=== PATIENT | female | born 1955 | race Caucasian/White ===

== ENCOUNTER 2025-07-31 14:07 | Outpatient (AMB) | payer MEDICARE, OTHER, SELFPAY ==
--- NOTE | 2025-07-31 14:10 | A.OFFVIS_ITS ---
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 Allergies codeine (CODEINE) Allergy (Unknown, Unverified 07/31/25 14:10) HALLUCINATIONS iodine (IODINE) Allergy (Unknown, Unverified 07/31/25 14:10) HOT FLASHES/SWEATY Penicillins (PENICILLINS) Allergy (Unknown, Unverified 07/31/25 14:10) RASH/THROAT CLOSES Sulfa (Sulfonamide Antibiotics) (SULFA(SULFONAMIDE ANTIBIOTICS)) Allergy (Unknown, Unverified 07/31/25 14:10) RASH AND SWELLING Medication List - Last Reconciled 07/31/25 by Divina Live CNP apixaban (Eliquis) 5 mg PO BID atorvastatin 20 mg PO DAILY citalopram 10 mg PO DAILY citalopram mg PO lorazepam 0.5 mg PO Q8H PRN omeprazole 20 mg PO DAILY HPI Comments Details: 69-year-old LH woman with history of breast cancer at age 48 s/p radiation, VTE on Eliquis, and headaches since childhood with migraines that started during puberty that resolved with control therapy, presenting with recurrent headaches and associated symptoms. Ocular migraines, characterized by kaleidoscope vision, started about 10 years. Episodes would occur about once a month and lasted few minutes each time, most often in left eye. 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 Episodes would happen about twice a week and lasted about 10 minutes. There was no associated headache. On a few occasions, visual disturbances were associated with feeling of near-syncope. She went to ER where work up was apparently negative, no records available at this time. Visual disturbances have significantly improved since the end of soccer camp in 04/2025. She may have had one episode in 06/2025 without associated symptoms or headache. Headaches were happening few times a week, and could last 15-30 minutes, up to few hours. Certain smells could trigger headache. Most commonly, pain was pressure-type to left posterior head and neck area. In the past, she has taken Excedrin and coffee with some relief. She had some pain and stiffness in neck and left shoulder. She has been dealing with some left shoulder pain and recently had some imagining studies done. [facility] Family History (Updated 07/31/25 @ 14:30 by Divina Live CNP) Brother Multiple sclerosis Brother Ankle ankylosis Social History (Updated 07/31/25 @ 14:16 by Divina Live CNP) Alcohol intake: never Patient Tobacco Use Status: Never used Tobacco Review of Systems Const Denies chills, Denies daytime sleepiness, Denies difficulty sleeping, Reports fatigue, Denies fever(s), Denies frequent falls, Reports headache(s), Denies increased appetite, Denies poor appetite, Denies snoring, Denies weakness, Denies weight gain and Denies weight loss Eyes Denies blurry vision, Denies diplopia and Denies loss of vision ENT Denies vertigo, Denies dizziness, Denies dry mouth, Denies otalgia, Reports headache(s), Denies hearing loss, Denies epistaxis, Denies nasal congestion, Reports neck pain, Denies tinnitus, Denies sinus pain and Denies sore throat Card Denies chest pain at rest, Denies chest pain with activity, Denies syncope, Denies leg edema, Denies palpitations, Denies dyspnea and Denies dyspnea on exertion Resp Denies cough, Denies dyspnea, Denies dyspnea on exertion and Denies snoring GI Denies abdominal pain, Denies constipation, Denies heartburn, Denies diarrhea, Denies nausea and Denies vomiting Denies urinary frequency, Denies nipple discharge, Denies urinary incontinence and Denies urinary urgency Musc Denies abnormal gait, Reports back pain, Denies myalgias, Reports arthralgias, Reports neck pain, Denies numbness, Denies stiffness and Denies tingling Skin/Breast Denies breast mass, Denies nipple discharge and Denies rash Neuro Denies abnormal gait, Denies vertigo, Denies dizziness, Denies syncope, Denies frequent falls, Reports headache(s), Denies lack of coordination, Denies loss of vision, Reports memory loss, Denies numbness, Denies Other visual disturbances, Denies restless legs, Denies seizure-like activity, Denies tingling, Denies paresthesias, Denies tremor(s) and Denies weakness Psych Reports anxiety, Reports depression, Reports memory loss, Denies visual hallucinations and Denies hallucinations Endo Denies cold intolerance, Reports fatigue, Denies heat intolerance, Denies polydipsia, Denies polyuria and Denies palpitations Jonh/Lymph Denies easy bleeding and Denies easy bruising Physical Exam Const Other: General Appearance:? normal, in no acute distress. Head:? normocephalic, atraumatic. Eyes:? sclera non-icteric, conjunctiva clear. Ears:? auditory canal clear, tympanic membrane intact, clear. Nose:? no lesions. Oral Cavity:? gums normal, mucosa moist, no lesions. Throat:? clear. Neck/Thyroid:? no cervical lymphadenopathy. Skin:? no rashes, no significant birthmarks. Heart:? S1, S2 normal, no murmurs. Lungs:? clear anteriorly and posteriorly. Chest:? no gross rib deformity, clear to auscultation. Extremities:? no edema. Psych:? alert, oriented, cognitive function intact, cooperative with exam. Neuro Other: Mental Status:?Normal attention, orientation, memory and affect.? Cranial Nerves:?Pupils are equal, round and reactive to light. External occular muscles are intact. Visual pena are full. Face is symmetrical. Facial sensations are normal. Tongue is midline. Palate elevates symmetrically. Shoulder shrugging is normal. Hearing to bedside conversation is normal. Motor Examination:?Normal muscle tone, bulk and strength - LUE somewhat decreased due to pain. Deep tendon reflexes are 2+,?Plantars are flexor.? Sensory Exam:?....? Coordination:?No ataxia,?no titubation.? Gait Exam: Within normal limits. Cerebellar Signs:?[id number] and [id number] is normal.? Extrapyramidal System:?No tremor, rigidity with normal facial expressions.? Pronator Drift:?Not present.? Involuntary Movements:?No tremors seen.? Speech:?Normal.? Assessment & Plan Assessment & Plan (1) Ocular migraine: Code(s): G43.109 - Migraine with aura, not intractable, without status migrainosus Category: Medical Plan: She was educated on this condition and its treatment, including lifestyle modifications. Episodes were not frequent and medication was not indicated at this time. (2) Migraine with aura: Code(s): G43.109 - Migraine with aura, not intractable, without status migrainosus Category: Medical Qualifiers: Intractability: not intractable Status migrainosus presence: without status migrainosus Qualified Code(s): G43.109 - Migraine with aura, not intractable, without status migrainosus Plan: She was educated on this condition and its treatment, including preventative and abortive therapies, and lifestyle modifications. May continue Excedrin as needed for migraines, no more than 2-3x/weeks to avoid medication over-use headaches. Can consider prophylatic medication in the future if symptoms become more steve quent or severe. Reviewed labs ordered. (3) Tension headache: Code(s): G44.209 - Tension-type headache, unspecified, not intractable Category: Medical Plan: Start cyclobenzaprine 5mg 1/2 tablet - 1 tablet at bedtime as needed for muscle spasms/pain, use/side effects reviewed. Orders: Orders C Reactive Protein Today G43.109 - Migraine with aura, not intractable, without status migrainosus Erythrocyte Sedimentation Rate Today G43.109 - Migraine with aura, not intractable, without status migrainosus Medications: New cyclobenzaprine 5 mg PO BEDTIME PRN 30 tabs 1RF muscle spasm 30 days Coding Level of Care Code New Pt Level 5 (48806) Diagnoses Ocular migraine G43.109 Migraine with aura and without status migrainosus, not intractable G43.109 Intractability: not intractable Status migrainosus presence: without status migrainosus Tension headache G44.209
--- OUTSIDE RECORDS SUMMARY | 2025-07-31 16:41 | XMS_ITS ---
Author Name [facility] Organization Unknown Care Team Organization Name Specialty Phone Email Start Date End Da te [facility] ACO 06/14/2025 [facility] 12/31/2022 06/13/2024 [facility] Marilee [facility] 09/02/2022
--- OUTSIDE RECORDS SUMMARY | 2025-07-31 16:41 | XMS_ITS | Clinical Summary ---
Author Organization [address] [place] [address] [place] [phone] Phone Care Team Providers Care Financial Aid Counselor Name Role Phone Jerome Orellana Primary Care Provider [phone] Allergies Active Allergy Reactions Criticality Noted Date Comments Alendronate Sodium 03/29/2021 Muscle aches Codeine Hallucinations 09/24/2005 Iodine Nausea And Vomiting 09/24/2005 Penicillin G Procaine Hives 09/24/2005 Penicillins Hives 09/24/2005 Shellfish Derived 08/24/2016 Sulfa (Sulfonamide Antibiotics) Hives 09/24/2005 Medications cholecalcifero l (VITAMIN D-3) 25 mcg (1,000 unit) capsule Take by mouth. Activ e calcium citrate/vitami n D3 (CITRACAL + D MAXIMUM ORAL) Take 1 capsule by mouth. Active fluticasone propionate (FLONASE) 50 mcg/actuation nasal spray USE 1 SPRAY BY NASAL ROUTE DAILY. 16 mL 5 09/07/20 24 Active apixaban (Eliquis) 5 mg tablet Take 1 tablet (5 mg total) by mouth 2 (two) times a day. 180 tablet 3 11/28/19 25 Active LORazepam (ATIVAN) 0.5 mg tablet Take 1 tablet (0.5 mg total) by mouth every 8 (eight) hours if needed for anxiety. Max Daily Amount: 1.5 mg 30 tablet 11/28/19 25 Active citalopram (CeleXA) 20 mg tablet TAKE 1 TABLET BY MOUTH EVERY DAY IN THE MORNING. TAKE ALONG WITH CITALOPRAM 10 MG FOR A TOTAL OF 30 MG DAILY 90 tablet 1 02/07/20 25 Active omeprazole (PriLOSEC) [address] capsule TAKE 1 CAPSULE BY MOUTH EVERY DAY 90 capsule 3 05/08/20 25 Active atorvastatin (LIPITOR) 20 mg tablet Take 1 tablet (20 mg total) by mouth 1 (one) time each day. 90 tablet 3 05/29/20 25 Active citalopram (CeleXA) 10 mg tablet TAKE 1 TABLET BY MOUTH DAILY ALONG WITH CITALOPRAM 20 MG DAILY FOR A TOTAL OF 30 MG DAILY 90 tablet 1 07/07/20 25 Active citalopram (CeleXA) 10 mg tablet TAKE 1 TABLET BY MOUTH DAILY ALONG WITH CITALOPRAM 20 MG DAILY FOR A TOTAL OF 30 MG DAILY 90 tablet 1 12/29/19 25 025 Discontinued Active Problems Problem Noted Date Diagnosed Date Ascending aorta dilatation ([facility] V24) 023 History of 2019 novel coronavirus disease (COVID -19) 04/07/2022 Incisional hernia, without obstruction or gangre ne 11/07/2021 RLQ abdominal pain 07/26/2021 Overview (01/03/2024): Last Assessment & Plan: Explained that the best mode of visualization of the ovaries is pelvic US. We will complete this and if normal, she will follow up with GI and PCP as planned for RLQ pain. No obvious findings on exam. Mild episode of recurrent ma sedrick depressive disorder ([facility] V24) 04/09/2021 Osteoporosis 11/08/2019 Overview (01/03/2024): Joint pains with fosamax Mixed hyperlipidemia 04/14/2018 Arthritis pain 01/08/2017 DVT, lower extremity, recurrent ([facility] V24, CM S/HCC V28) 03/17/2014 Lumbar compression fracture ([facility] V24, [facility] V28) 06/21/2012 Lumbago 03/09/2012 Lumbosacral spondylosis without myelopathy 03/09 Spinal stenosis, lumbar 03/09/2012 Gall bladder stones 07/11/2009 Kidney stones 07/11/2009 Esophageal reflux 09/24/2005 Encounters Date Type Department Care Team Description 06/20/2025 Telephone Adult Medicine [address] [phone] Jerome Orellana PA 06/19/2025 1:28 PM EDT - 06/19/2025 11:59 PM EDT Hospital Encounter Radiology Department - [address] [phone] Ascending aorta dilatation (CMS/HCC V24); Gastroesophageal reflux disease without esophagitis; Mixed hyperlipidemia; Osteoporosis, unspecified osteoporosis type, unspecified pathological fracture presence; Spinal stenosis of lumbar region without neurogenic claudication; Productive cough; Arthritis pain; Ocular migraine Discharge Disposition: Home or Self Care 06/08/2025 12:30 PM EDT Ancillary Procedure [facility] [address] [place] [address] Ascending aorta dilatation (CMS/HCC V24); Gastroesophageal reflux disease without esophagitis; Mixed hyperlipidemia; Osteoporosis, unspecified osteoporosis type, unspecified pathological fracture presence; Spinal stenosis of lumbar region without neurogenic claudication 05/29/2025 1:40 PM EDT - 05/29/2025 11:59 PM EDT Hospital Encounter XRAY - [address] [phone] Ascending aorta dilatation (CMS/HCC V24); Gastroesophageal reflux disease without esophagitis; Mixed hyperlipidemia; Osteoporosis, unspecified osteoporosis type, unspecified pathological fracture presence; Spinal stenosis of lumbar region without neurogenic claudication; Productive cough; Arthritis pain; Ocular migraine Discharge Disposition: Home or Self Care 05/29/2025 12:45 PM EDT Office Visit Adult Medicine [address] [phone] Jerome Orellana PA Mixed hyperlipidemia (Primary Dx); Ascending aorta dilatation (CMS/HCC V24); Gastroesophageal reflux disease without esophagitis; Osteoporosis, unspecified osteoporosis type, unspecified pathological fracture presence; Spinal stenosis of lumbar region without neurogenic claudication; Productive cough; Arthritis pain; Ocular migraine from Last 3 Months Immunizations Immunization Administration Dates Next Due Influenza Quadravalent, 0.5m l (Fluad) 65yo and older 08/01/2021 Influenza Quadravalent, 0.5m l (Fluzone High-dose) 65yo and older 08/28/2022,08/28/2022,08/28/2019 Influenza Quadravalent, MDCK , 0.5ml, with preservative (Flucelvax) 6mo and older 08/01/2021,07/13/2017 Influenza trivalent, 0.5mL ( Fluad) 65yo and older 08/30/2024 Influenza trivalent, 0.5mL ( Fluzone High-dose) 65yo and older 07/16/2025,09/07/2023,08/28/2022,08/16,08/26/2019,07/12/2018 Influenza trivalent, with pr eservative (Fluzone; Afluria) 6mo and older 08/24/2016,07/28/2014,07/12/2009,09/05,07/26/2007 [employer] SARS-CoV-2 COVID-19, mRNA, LNP-S, preservative free 08/28/2022 Pneumococcal conjugate 13 va lent (Prevnar 13, PCV13) 2mo and older 09/14/2019 Pneumococcal polysaccharide 23 valent (Pneumovax 23) 2yo and older 09/28/2020 RSV, bivalent, protein subun it RSVpreF, 0.5mL, Preservative Free (Arexvy) 50yo and older 07/01/2024 TD, Adsorbed, Preservative Free 03/29/2021 Td Tetanus diptheria (Tdvax) 7yo and older 03/29/2021 Tdap Tetanus diptheria acell ular pertussis (Boostrix; Adacel) 7yo and older 12/30/2024,05/15/2008 Zoster Live 06/19/2015 Zoster recombinant (Shingrix ) 19yo and older 09/02/2021,09/24/2020 Surgical History Surgery Date Site/Laterality Comments BREAST LUMPECTOMY 10/26/2003 PROCEDURE: HISTORICAL BREAST LUMPECTOMY; COMMENT: Tamoxifen and radiation RX SALPINGOOPHORECTOMY PROCEDURE: MA LAPAROSCOPY W/RMVL ADNEXAL STRUCTURES; COMMENT: ROV cystectomy 1989 ESOPHAGOGASTRODUODENOSCOPY 08/09/2010 PROCEDURE: MA ESOPHAGOGASTRODUODENOSCOPY TRANSORAL DIAGNOSTIC; COMMENT: normal COLONOSCOPY 11/17/2005 PROCEDURE: HISTORICAL COLONOSCOPY; COMMENT: normal; repeat in ten years OTHER SURGICAL HISTORY 03/18/2016 PROCEDURE: COLON CA SCRN NOT HI RSK IND; COMMENT: tics and hemorrhoids; repeat in 10 yrs COLONOSCOPY 08/22/2021 PROCEDURE: HISTORICAL COLONOSCOPY; COMMENT: diverticulosis Medical History Medical History Date Comments Personal history of venous t hrombosis and embolism DX:Personal history of venou s thrombosis and embolism Allergic rhinitis, cause unspecified DX:Allergic rhinitis, cause unspecified Depressive disorder, not els ewhere classified 10/23/2006 DX:Depressive disorder, not elsewhere classified Unspecified asthma(493.90) DX:Un specified asthma(493.90) Anxiety state, unspecified DX:An xiety state, unspecified Malignant neoplasm of breast (female), unspecified site 09/24/2005 DX:Malignant neoplasm of br east (female), unspecified site; COMMENT: S/P LUMPECTOMY AND XRT 2004 Acquired lactose intolerance DX: Acquired lactose intolerance Esophageal reflux 09/24/2005 DX:Esophageal reflux Fall DX:Fall; COMMENT : 2023 Family History Medical History Relation Name Comments Arthritis Mother Diabetes Mother colostomy ( Cho litis) bipolar, age 72 Glaucoma Mother Cataracts Sister 1 Blindness Neg Hx Breast cancer Neg Hx Colon cancer Neg Hx Macular degeneration Neg Hx Ovarian cancer Neg Hx Strabismus Neg Hx Relation Name Status Comments Brother 1 Alive bipolar Brother 2 Alive ?mental illness Brother 3 Alive ETOH Brother 4 Alive ETOH, Father alcohol, cirrho sis Mother diabetes, bipol ar, glaucoma Sister 1 (Age 27) bipolar, s uicide Sister 2 Alive Social History Tobacco Use Types Packs/Day Years Used Date Smoking Tobacco: Never Smokeless Tobacco: Never Tobacco Cessation:Counseling Given: Not Answered Alcohol Use Standard Drinks/Week Comments No 0 (1 standard drink = 0.6 oz pur e alcohol) Housing Instability Answer Date Recorde d Are you worried that in the next 2 months you may not have stable housing? No 11/26/2024 Food Access & Nutrition Answer Date Rec orded Do you have access to a vari ety of food including fruits and vegetables? Yes 11/26/2024 Access to Healthcare Answer Date Record ed Within the last 3 months, ho w many times did you visit the emergency department for your medical care? 0 11/26/2024 Health Literacy Answer Date Recorded How often do you need to hav e someone help you when you read instructions, pamphlets, or other written material from your doctor or pharmacy? Never 11/26/2024 Caregiver: How often do you need to have someone help you when you read instructions, pamphlets, or other written material from your doctor or pharmacy? Not on file 11/26/2024 Financial Risk Answer Date Recorded How hard is it for you to pa y for the very basics like food, housing, medical care, and air conditioning / heating? Not very hard 11/26/2024 Transportation Answer Date Recorded Has the lack of transportati on kept you from meetings, work, or from getting things needed for daily living? No Has the lack of transportati on kept you from medical appointments or from getting medications? No 11/26/2024 Social Isolation Answer Date Recorded How often do you feel lonely or isolated from th ose around you? Never 11/26/2024 Food Risk Answer Date Recorded Within the past 12 months we worried whether our food would run out before we got money to buy more. Never true 11/26/2024 Within the past 12 months th e food we bought just didn't last and we didn't have money to get more. Never true 11/26/2024 Dependent Care Answer Date Recorded Do you need help finding or paying for care for your loved ones. For example, child life specialist or elderly care for an older adult? No 11/26/2024 Education Answer Date Recorded Do you think completing more education or training, like finishing a GED, going to college, or learning a trade, would be helpful for you? No 11/26/2024 Employment and Income Answer Date Recor ded During the last four weeks, have you been actively looking for work? No 11/26/2024 Living Situation Answer Date Recorded What is your living situation? Unrecognized valu e 11/26/2024 Comments No Sex and Gender Information Value Date Recorded Sex Assigned at Not on file Legal Sex Female 9:53 AM EST Gender Identity Not on file Sexual Orientation Not on file Obstetrics History Last Filed Vital Signs Vital Sign Reading Time Taken Comments Blood Pressure 120/82 06/08/2025 1:15 PM EDT Pulse 82 05/29/2025 12:58 PM EDT Temperature 36.8 C (98.2 F) 05/29/2025 12:58 PM EDT Respiratory Rate 14 12/21/2024 1:04 PM EST Oxygen Saturation - - Inhaled Oxygen Concentration - - Weight 71.2 kg (157 lb) 06/19/2025 1:51 PM EDT Height 165.1 cm (5' 5 ) 06/08/2025 1:15 PM EDT Body Mass Index 26.13 06/08/2025 1:15 PM EDT Plan of Treatment Upcoming Encounters Date Type Department Care Team (Late st Contact Info) Description 12/01/2025 8:45 AM EST Office Visit Adult Medicine [address] [phone] Jerome Orellaan PA [address] [place] [phone] 06/22/2026 9:00 AM EDT Ancillary Procedure [facility] [address] [place] [address] Health Maintenance Due Date Last Done Comments Hepatitis C Screening 10/04/2022 Medicare Annual Wellness Visit 10/04/2022 Social Influencers of Health Screening 11/26/2025 11/26/2024 Falls Risk Assessment 11/28/2025 11/28/2024, 024 Breast Cancer Screening 11/24/2026 11/24/2024 Cholesterol Screening (Lipid Panel) 10/27/2028 10/27/2023 Colorectal Cancer Screening: Colonoscopy 08/22/2031 08/22/2021 Osteoporosis Screening (Bone Density Screening) 07/11/2032 07/11/2022, 10/31/2019 DTaP,Tdap,and Td Vaccines (5 - Td or Tdap) 12/30/2034 12/30/2024, 03/29/2021, 03/29/2021, Additional history exists Pneumococcal Vaccine: 50+ Years Completed 09/28/2020, 09/14/2019 Zoster Vaccines Completed 09/02/2021, 08/28, 06/19/2015 RSV Immunization Adult Patients Completed 07/01/2024 Depression Screening Completed 11/26/2024 COVID-19 Vaccine Completed 07/16/2025, 03/2024, 09/28/2023, Additional history exists Influenza Vaccine Completed 07/16/2025, , 09/07/2023, Additional history exists HIB Vaccines Aged Out No longer eligi ble based on patient's age to complete this topic HPV Vaccines Aged Out No longer eligi ble based on patient's age to complete this topic Hepatitis A Vaccines Aged Out No long er eligible based on patient's age to complete this topic Hepatitis B Vaccines Aged Out No long er eligible based on patient's age to complete this topic IPV Vaccines Aged Out No longer eligi ble based on patient's age to complete this topic MMR Vaccines Aged Out No longer eligi ble based on patient's age to complete this topic Meningococcal ACWY Vaccine Aged Out N o longer eligible based on patient's age to complete this topic Meningococcal B Vaccine Aged Out No l onger eligible based on patient's age to complete this topic RSV Immunization Patients Under 20 months Aged Out No longer eligible based on patient's age to complete this topic Varicella Vaccines Aged Out No longer eligible based on patient's age to complete this topic Procedures Procedure Name Priority Date/Time Associated Diagnosis Comments MR BRAIN WO AND W CONTRAST Routine 06/19/2025 2:27 PM EDT Ascending aorta dilatation (CMS/HCC V24) Gastroesophageal reflux disease without esophagitis Mixed hyperlipidemia Osteoporosis, unspecified osteoporosis type, unspecified pathological fracture presence Spinal stenosis of lumbar region without neurogenic claudication Productive cough Arthritis pain Ocular migraine TRANSTHORACIC ECHOCARDIOGRAM (TTE) COMPLETE Routine 06/08/2025 1:15 PM EDT Ascending aorta dilatation (CMS/HCC V24) Gastroesophageal reflux disease without esophagitis Mixed hyperlipidemia Osteoporosis, unspecified osteoporosis type, unspecified pathological fracture presence Spinal stenosis of lumbar region without neurogenic claudication XR CHEST 2 VIEWS Routine 05/29/2025 1:47 PM EDT Ascending aorta dilatation (CMS/HCC V24) Gastroesophageal reflux disease without esophagitis Mixed hyperlipidemia Osteoporosis, unspecified osteoporosis type, unspecified pathological fracture presence Spinal stenosis of lumbar region without neurogenic claudication Productive cough Arthritis pain Ocular migraine DXA BONE DENSITY STUDY 1+ SITS AXIAL SKEL Routine 07/11/2022 11:02 AM EDT Mixed hyperlipidemia Age-related osteoporosis without current pathological fracture Major depressive disorder, recurrent, mild (CMS/HCC V24) Low back pain, unspecified Acute embolism and thrombosis of unspecified deep veins of right lower extremity (CMS/HCC V24, CMS/HCC V28) Spinal stenosis, lumbar region without neurogenic claudication Gastro-esophageal reflux disease without esophagitis Personal history of COVID-19 Wedge compression fracture of unspecified lumbar vertebra, sequela EXTERNAL COLONOSCOPY REPORT Routine 08/22/2021 12:00 AM EDT from Last 3 Months or Most Recently Relevant to Health Maintenance Results * MR Brain wo and w Contrast (06/19/2025 2:27 PM EDT) Anatomical Region Laterality Modality Head and Neck Magnetic Resonan ce 06/20/2025 10:0 1 AM EDT Impressions 06/20/2025 10:28 AM EDT Impression: 1. No acute infarct. No acute intracranial hemorrhage. No abnormal enhancement of the visualized cranial nerves 2. There is faint curvilinear enhancement within the inferior aspect of the cortney which likely represents vasculature/vascular anatomic variant. There is no mass effect. To assess for stability, MRI brain with IV contrast in 6 months -------- FINAL REPORT -------- Dictated By: Gladys Washington Dictated Date: 06/20/2025 10:01 ET Assigned Physician: Gladys Washington Reviewed and Electronically Signed By: Gladys Washington Signed Date: 06/20/2025 10:28 ET Workstation ID: [id number] Transcribed By: Self Edit Transcribed Date: 06/20/2025 10:01 ET Narrative 06/20/2025 10:28 AM EDT MRI BRAIN WITH AND WITHOUT CONTRAST Clinical Statement: Dizziness, non-specific dizziness, vertigo, visual disturbances, oculat migraines Comparison: None Technique: Multiplanar, multisequence MR images of the brain were obtained prior to and following the uneventful intravenous administration of 15 mL of Dotarem Findings: There is no evidence of diffusion restriction. No intracranial hemorrhage. The temporal lobes are symmetric. Mild white matter hyperintensities within the periventricular and supraventricular region consistent with microvascular ischemic changes. The craniocervical junction is normal. There is no abnormal mass effect upon the right middle lobe probably due to tortuous vasculature (series 601, image 5). Faint curvilinear enhancement along the inferior aspect of the cortney likely represents curvilinear vasculature (series 1003, image 18). The ventricular system is prominent commensurate with the degree of volume loss. The basilar cisterns are normal. The orbits and globes are within normal limits. Mucosal thickening within the paranasal sinuses. Procedure Note Gladys Washington MD - 06/20/2025 MRI BRAIN WITH AND WITHOUT CONTRAST Clinical Statement: Dizziness, non-specific dizziness, vertigo, visual disturbances, oculat migraines Comparison: None Technique: Multiplanar, multisequence MR images of the brain wereobtained prior to and following the uneventful intravenous administrationof 15 mL of Dotarem Findings: There is no evidence of diffusion restriction. No intracranialhemorrhage. The temporal lobes are symmetric. Mild white matterhyperintensities within the periventricular and supraventricular regionconsistent with microvascular ischemic changes. The craniocervicaljunction is normal. There is no abnormal mass effect upon the rightmiddle lobe probably due to tortuous vasculature (series 601, image 5).Faint curvilinear enhancement along the inferior aspect of the cortney likelyrepresents curvilinear vasculature (series 1003, image 18). Theventricular system is prominent commensurate with the degree of volumeloss. The basilar cisterns are normal. The orbits and globes are withinnormal limits. Mucosal thickening within the paranasal sinuses. IMPRESSION: Impression: 1. No acute infarct. No acute intracranial hemorrhage. No abnormalenhancement of the visualized cranial nerves 2. There is faint curvilinear enhancement within the inferior aspect ofthe cortney which likely represents vasculature/vascular anatomic variant.There is no mass effect. To assess for stability, MRI brain with IVcontrast in 6 months -------- FINAL REPORT -------- Dictated By: Gladys Washington Dictated Date: 06/20/2025 10:01 ET Assigned Physician: Gladys Washington Reviewed and Electronically Signed By: Gladys Washington Signed Date: 06/20/2025 10:28 ET Workstation ID: [id number] Transcribed By: Self Edit Transcribed Date: 06/20/2025 10:01 ET Jerome MATHEW IMChelsi MRI PROCEDURES Final Result * (ABNORMAL) TRANSTHORACIC ECHOCARDIOGRAM (TTE) COMPLETE (06/08/2025 1:15 PM EDT) Left Atrium Minor [place] 5.9 cm CV PACS Left Atrium Major [place] 5.0 cm CV PACS LA Area Sys (A2C) 19 cm2 CV PACS LA Area Sys (A4C) 14 cm2 CV PACS LA Volume (BP) 41 mL CV PACS RA Area 13.8 cm2 CV PACS RA 2D Volume 29 mL CV PACS AR Max Velocity 2.5 m/s CV PACS AV Peak Gradient 10 mmHg CV PACS AV Peak Flakito 1.6 m/s CV PACS AV Mean Gradient 5 mmHg CV PACS Ao VTI 31.1 cm CV PACS AV Area Continuity Equation 2.2 cm2 CV PACS AV Area Peak Velocity 2.3 cm2 CV PACS Aortic Sinus Valsalva 3.7 cm CV PACS Ascending Aorta 4.0 cm CV PACS IVC Proximal 1.1 cm CV PACS IVSD 0.9 0.6 - 0.9 cm CV PACS LVIDD 3.5(A) 3.8 - 5.2 cm CV PACS LVIDS 1.8(A) 2.2 - 3.5 cm CV PACS LVOT Diameter 2.0 cm CV PACS LVOT Mean [place] 0.7 m/s CV PACS LVOT Mean Grad 3 mmHg CV PACS LVOT Peak VTI 21.5 cm CV PACS LVOT Peak [place] 1.2 m/s CV PACS LVOT Peak Gradient 5 mmHg CV PACS LVPWD 0.9 0.6 - 0.9 cm CV PACS MV E' Tissue Velocity Lateral 6 cm/s CV PACS MV E' Tissue Velocity Septal 7 cm/s CV PACS LVOT Area 3.1 cm2 CV PACS LVOT Stroke Volume 68 mL CV PACS MV Deceleration [place] 3.0 m/s2 CV PACS E Wave Deceleration Time 217 119 - 242 ms CV PACS MV PHT 63 ms CV PACS MV Peak A [place] 1.00 m/s CV PACS MV Peak E [place] 0.60 m/s CV PACS MV Area PHT 3.4 cm2 CV PACS PV Acceleration Time 108 ms CV PACS PV Acceleration Time 108 ms CV PACS RV Diastolic Basal Dimension 3.0 2.5 - 4.1 cm CV PACS RV S' 13 cm/s CV PACS TAPSE 26 mm CV PACS TR Peak Velocity 1.90 m/s CV PACS TR Peak Gradient 14 mmHg CV PACS E/E' Ratio Septal 9 CV PACS E/E' Ratio Averaged 9 CV PACS Relative Wall Thickness ratio 0.51(A) 0.22 - 0.42 CV PACS LVOT:AV VTI Index 0.69 CV PACS FS 49 % CV PACS LV Mass 2D 91 66 - 150 g CV PACS LVOT flow 220 mL/s CV PACS AV Velocity Ratio 0.73 CV PACS E/A Ratio 0.6 0.8 - 2.0 CV PACS E/E' Ratio Lateral 10 CV PACS BSA 1.81 m2 CV PACS LA Volume Index (BP) 22 mL/m2 CV PACS LVIDD Index 1.97 cm/m2 CV PACS LVIDS Index 1.01 cm/m2 CV PACS LV Mass Index 2D 50 44 - 88 g/m2 CV PACS LVOT Stroke Index 0 mL/m2 CV PACS RA 2D Volume Index 16 15 - 27 mL/m2 CV PACS DOMINICK Index (VTI) 1.22 cm2/m2 CV PACS DOMINICK Index (Pk Flakito) 1.29 cm2/m2 CV PACS Ascending Aorta Index 2.25 cm/m2 CV PACS Right Ventricular Peak Systolic Pressure 17 mmHg CV PACS Est. RA Pressure 3 mmHg CV PACS RV Free Wall Peak S' 13 cm/s CV PACS RA Major [place] 5.3 cm CV PACS RA Major [place] Index 3.0(A) 2.2 - 2.8 cm/m2 CV PACS AV Area 2D 2.3 cm2 CV PACS DOMINICK Index (2D) 1.29 cm2/m2 CV PACS Inferior Vena Cava Diameter At Expiration 1.1 cm CV PACS IVC Expiration Index 0.62 cm/m2 CV PACS AV Area Index 1.3 CV PACS AV Regurgitation PHT 405 ms CV PACS Anatomical Region Laterality Modality Ultrasound Narrative 06/23/2025 12:06 PM EDT Left ventricle cavity size is normal. There is normal left ventricular wall thickness. There is normal left ventricular regional wall motion. Left ventricular systolic function is in the normal range with an ejection fraction of 60-65%. Right ventricle cavity is normal. Right ventricular systolic function is normal. There is no hemodynamically significant valve disease. There is only trace to mild aortic insufficiency noted. See all other mild valvular abnormalities as below. There is normal left ventricular diastolic function. There is normal pulmonary artery systolic pressure. The ascending aorta is mildly dilated for age and body surface area at 4.0 cm. Compared with prior echocardiogram from 01/30/2023, findings are roughly unchanged. Left Ventricle Left ventricle cavity size is normal. Wall thickness is normal. Systolic function is normal with an ejection fraction of 60-65%. Incidental note of a false tendon seen in the LV cavity a benign finding. There are no regional LV wall motion abnormalities. There is no diastolic dysfunction and normal left atrial pressure. Right Ventricle Right ventricle cavity appears normal. Systolic function is normal. Left Atrium The left atrium is foreshortened in the apical four-chamber view so cannot give accurate volume index. Grossly it appears normal in size. Right Atrium Right atrium cavity is normal. IVC/SVC RA pressures is estimated to be 3 mmHg (IVC diameter <21 mm and decreases >50% during inspiration). Mitral Valve The leaflets are mildly thickened. There is mild annular calcification. There is trace regurgitation. There is no evidence of mitral valve stenosis. Tricuspid Valve Tricuspid valve structure is normal. There is trace regurgitation. There is no evidence of tricuspid valve stenosis. The right ventricular systolic pressure is normal. The RVSP is estimated at 17 mmHg. Aortic Valve The aortic valve is trileaflet. There is trace to mild regurgitation. There is no evidence of aortic valve stenosis. Pulmonic Valve Pulmonic valve structure is normal. There is no regurgitation or stenosis. Ascending Aorta The aortic root is normal in size for age and body surface area. The ascending aorta is mildly dilated for age and body surface area at 4.0 cm. The transverse aorta is not well-visualized. Pericardium There is an anterior fat pad. There is no pericardial effusion. Study Details Overall the study quality was adequate. Jerome MATHEW CV ECHO PROCEDURES Final Result * XR Chest 2 Views (05/29/2025 1:47 PM EDT) Anatomical Region Laterality Modality Body Radiographic Rachel ging 05/29/2025 2:15 PM EDT Impressions 05/29/2025 2:17 PM EDT No acute pulmonary pathology. Hiatal hernia. Advanced degenerative change of the shoulders. -------- FINAL REPORT -------- Dictated By: Deneen Mosqueda Dictated Date: 05/29/2025 14:15 ET Assigned Physician: Deneen Mosqueda Reviewed and Electronically Signed By: Deneen Mosqueda Signed Date: 05/29/2025 14:17 ET Workstation ID: [id number] Transcribed By: Self Edit Transcribed Date: 05/29/2025 14:15 ET Narrative 05/29/2025 2:17 PM EDT CHEST, TWO VIEWS HISTORY: . TECHNIQUE: Frontal and lateral views of the chest. PRIOR: CT abdomen pelvis 01/30/2022. FINDINGS: The lungs are clear. No pleural effusion is seen. No pneumothorax is seen. The cardiac diameter is within normal limits. No acute or aggressive appearing bony abnormalities are seen. There is advanced degenerative change of the shoulders. There is a moderate hiatal hernia. Procedure Note Deneen Mosqueda MD - 05/29/2025 CHEST, TWO VIEWS HISTORY: . TECHNIQUE: Frontal and lateral views of the chest. PRIOR: CT abdomen pelvis 01/30/2022. FINDINGS: The lungs are clear. No pleural effusion is seen. No pneumothorax is seen. The cardiac diameter is within normal limits. No acute or aggressive appearing bony abnormalities are seen. There isadvanced degenerative change of the shoulders. There is a moderate hiatal hernia. IMPRESSION: No acute pulmonary pathology. Hiatal hernia. Advanced degenerative change of the shoulders. -------- FINAL REPORT -------- Dictated By: Deneen Mosqueda Dictated Date: 05/29/2025 14:15 ET Assigned Physician: Deneen Mosqueda Reviewed and Electronically Signed By: Deneen Mosqueda Signed Date: 05/29/2025 14:17 ET Workstation ID: [id number] Transcribed By: Self Edit Transcribed Date: 05/29/2025 14:15 ET us Jerome MATHEW IMG XR PROCEDURES Final R esult * DXA BONE DENSITY STUDY 1+ SITS AXIAL SKEL (07/11/2022 11:02 AM EDT) Anatomical Region Laterality Modality Bone Densitometr y 04/07/2022 4:03 PM EDT Narrative 07/11/2022 2:26 PM EDT BONE DENSITY Lumbar Spine T-score is -2.2 (SD relative to 20-29 y/o adult) Z-score is -0.2 (SD relative to age matched peers) This is consistent with osteopenia by criteria defined by the WHO. Left Hip T-score is -3.2 Z-score is -1.5 This is consistent with osteoporosis by criteria defined by the WHO. Comparison exam(s): significant decrease in bone density of hip when compared to most recent bone density examination Confidence level is +/-95%. Impression: Based on the World Health Organization criteria, Portia Alves should be classified as having osteoporosis. The [facility] Department of Internal Medicine recommends using National Osteoporosis Foundation (NOF) guidelines in treatment decisions related to osteoporosis. NOF guidelines suggest considering treatment for postmenopausal women and men aged 50 or older presenting with the following: History of hip or vertebral fracture. T-score less than or equal to -2.5 (DXA) at the femoral neck, total hip, or spine, after appropriate evaluation to exclude secondary causes. Low bone mass (T-score between -1.0 and -2.5 at the femoral neck or spine) AND a 10-year probability of a hip fracture greater than or equal to 3% OR a 10-year probability of a major osteoporosis-related fracture greater than or equal to 20% based on the [place]-adapted WHO algorithm Please note that all treatment decisions require clinical judgment and consideration of individual patient factors, including patient preferences, co-morbidities, previous drug use, risk factors not captured in the FRAX model (e.g., frailty, falls, vitamin D deficiency, increased bone turnover, interval significant decline in bone density) and possible under- or over-estimation of fracture risk by FRAX. Procedure Note Supa Holbrook MD - 10/14/2022 BONE DENSITY Lumbar Spine T-score is -2.2 (SD relative to 20-29 y/o adult) Z-score is -0.2 (SD relative to age matched peers) This is consistent with osteopenia by criteria defined by the WHO. Left Hip T-score is -3.2 Z-score is -1.5 This is consistent with osteoporosis by criteria defined by the WHO. Comparison exam(s): significant decrease in bone density of hip whencompared to most recent bone density examination Confidence level is +/-95%. Impression: Based on the World Health Organization criteria, Portia Alves should beclassified as having osteoporosis. The [facility] Department of Internal Medicine recommendsusing National Osteoporosis Foundation (NOF) guidelines in treatmentdecisions related to osteoporosis. NOF guidelines suggest consideringtreatment for postmenopausal women and men aged 50 or older presentingwith the following: History of hip or vertebral fracture. T-score less than or equal to -2.5 (DXA) at the femoral neck, total hip,or spine, after appropriate evaluation to exclude secondary causes. Low bone mass (T-score between -1.0 and -2.5 at the femoral neck or spine)AND a 10-year probability of a hip fracture greater than or equal to 3% ORa 10-year probability of a major osteoporosis-related fracture greaterthan or equal to 20% based on the [place]-adapted WHO algorithm Please note that all treatment decisions require clinical judgment andconsideration of individual patient factors, including patientpreferences, co-morbidities, previous drug use, risk factors not capturedin the FRAX model (e.g., frailty, falls, vitamin D deficiency, increasedbone turnover, interval significant decline in bone density) and possibleunder- or over-estimation of fracture risk by FRAX. Jerome ARROYO DXA PROCEDURES Final Result * External Colonoscopy Report (08/22/2021 12:00 AM EDT) Anatomical Region Laterality Modality Endoscopy us Historical Provider GI~PROCEDURE ORDERABLES E dited Result - Final from Last 3 Months or Most Recently Relevant to Health Maintenance Insurance MEDICARE [facility] Care Teams Financial Aid Counselor Relationship Specialty Start Date End Date Jerome Orellana PA [address] [place] [phone] PCP - General Internal Medicine 04/02/21
== END 2025-07-31 14:54 | disposition home or self-care (01) ==
LOC: HO.HSM 14:08
PROVIDERS: PCP Physician Assistant Medical; Visit Provider Registered Nurse
DX: G43.109 Migraine with aura, not intractable, without status migrainosus (principal); G44.209 Tension-type headache, unspecified, not intractable
CPT/HCPCS: 99204

== ENCOUNTER → 2025-07-31 14:07 | Outpatient (BNVA) | payer MEDICARE, OTHER, SELFPAY | PROVIDERS: PCP Physician Assistant Medical; Visit Provider Registered Nurse | DX: G43.109 Migraine with aura, not intractable, without status migrainosus (principal); G44.209 Tension-type headache, unspecified, not intractable | CPT/HCPCS: 99202 ==

== ENCOUNTER 2025-08-03 15:36 | Outpatient (REF) | payer MEDICARE, OTHER, SELFPAY ==
--- OUTSIDE RECORDS SUMMARY | 2025-08-03 15:41 | XMS_ITS | Clinical Summary ---
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 ([facility] V24) 04/09/2021 Osteoporosis 11/08/2019 Overview (01/03/2024): Joint pains with fosamax Mixed hyperlipidemia 04/14/2018 Arthritis pain 01/08/2017 DVT, lower extremity, recurrent ([facility] V24, CM S/HCC V28) 03/17/2014 Lumbar compression fracture ([facility] V24, [facility]/ C V28) 06/21/2012 Lumbago 03/09/2012 Lumbosacral spondylosis without myelopathy 03/09 Spinal stenosis, lumbar 03/09/2012 Gall bladder stones 07/11/2009 Kidney stones 07/11/2009 Esophageal reflux 09/24/2005 Encounters Date Type Department Care Team Description 06/20/2025 Telephone Adult Medicine [address] [phone] Jerome Orellana PA 06/19/2025 1:28 PM EDT - 06/19/2025 11:59 PM EDT Hospital Encounter Radiology Department - [address] [phone] Ascending aorta dilatation (CMS/HCC V24); Gastroesophageal reflux disease without esophagitis; Mixed hyperlipidemia; Osteoporosis, unspecified osteoporosis type, unspecified pathological fracture presence; Spinal stenosis of lumbar region without neurogenic claudication; Productive cough; Arthritis pain; Ocular migraine Discharge Disposition: Home or Self Care 06/08/2025 12:30 PM EDT Ancillary Procedure [facility] [address] [place] [address] Ascending aorta dilatation (CMS/HCC V24); Gastroesophageal reflux disease without esophagitis; Mixed hyperlipidemia; Osteoporosis, unspecified osteoporosis type, unspecified pathological fracture presence; Spinal stenosis of lumbar region without neurogenic claudication 05/29/2025 1:40 PM EDT - 05/29/2025 11:59 PM EDT Hospital Encounter XRAY - [address] [phone] Ascending aorta dilatation (CMS/HCC V24); Gastroesophageal reflux disease without esophagitis; Mixed hyperlipidemia; Osteoporosis, unspecified osteoporosis type, unspecified pathological fracture presence; Spinal stenosis of lumbar region without neurogenic claudication; Productive cough; Arthritis pain; Ocular migraine Discharge Disposition: Home or Self Care 05/29/2025 12:45 PM EDT Office Visit Adult Medicine [address] [phone] Jerome Orellana PA Mixed hyperlipidemia (Primary Dx); [...] eservative (Fluzone; Afluria) 6mo and older 08/24/2016,07/28/2014,07/12/2009,09/05,07/26/2007 [employer] SARS-CoV-2 COVID-19, mRNA, LNP-S, preservative free 08/28/2022 [...] COMMENT: Tamoxifen and radiation RX SALPINGOOPHORECTOMY PROCEDURE: LA LAPAROSCOPY W/RMVL ADNEXAL STRUCTURES; COMMENT: ROV cystectomy 1989 ESOPHAGOGASTRODUODENOSCOPY 08/09/2010 PROCEDURE: LA ESOPHAGOGASTRODUODENOSCOPY TRANSORAL DIAGNOSTIC; COMMENT: normal COLONOSCOPY 11/17/2005 [...] for your loved ones. For example, child and family services specialist or elderly care for an older [...] 8:45 AM EST Office Visit Adult Medicine [address] [phone] Jerome Orellana PA [address] [place] [phone] 06/22/2026 9:00 AM EDT Ancillary Procedure [facility] [address] [place] [address] Health Maintenance Due Date Last [...] Signed Date: 06/20/2025 10:28 ET Workstation ID: [id number] Transcribed By: Self Edit Transcribed Date: 06/20/2025 [...] Signed Date: 06/20/2025 10:28 ET Workstation ID: [id number] Transcribed By: Self Edit Transcribed Date: 06/20/2025 10:01 ET Jerome MATHEW IMChelsi MRI PROCEDURES Final Result * (ABNORMAL) TRANSTHORACIC ECHOCARDIOGRAM (TTE) COMPLETE (06/08/2025 1:15 PM EDT) Left Atrium Minor [place] 5.9 cm CV PACS Left Atrium Major [place] 5.0 cm CV PACS LA Area Sys [...] Volume 68 mL CV PACS MV Deceleration [place] 3.0 m/s2 CV PACS E Wave Deceleration [...] S' 13 cm/s CV PACS RA Major [place] 5.3 cm CV PACS RA Major [place] Index 3.0(A) 2.2 - 2.8 cm/m2 CV [...] Signed Date: 05/29/2025 14:17 ET Workstation ID: [id number] Transcribed By: Self Edit Transcribed Date: 05/29/2025 [...] Signed Date: 05/29/2025 14:17 ET Workstation ID: [id number] Transcribed By: Self Edit Transcribed Date: 05/29/2025 [...] should be classified as having osteoporosis. The [facility] Department of Internal Medicine recommends using National [...] Alves should beclassified as having osteoporosis. The [facility] Department of Internal Medicine recommendsusing National Osteoporosis [...] Recently Relevant to Health Maintenance Insurance MEDICARE [facility] Care Teams Senior Ux Developer Relationship Specialty Start Date End Date Jerome Orellana PA [address] [place] [id number] PCP - General Internal Medicine 04/02/21
== END 2025-08-03 15:37 | disposition home or self-care (01) ==
LOC: HO.LAB 15:36
PROVIDERS: PCP Physician Assistant Medical; Visit Provider Registered Nurse
DX: G43.109 Migraine with aura, not intractable, without status migrainosus (principal)
CPT/HCPCS: 36415; 85652; 86140